=== PATIENT | male | born 1945 | race Caucasian/White ===

== ENCOUNTER → 2020-08-24 08:51 | Outpatient (CLI) | payer MEDICARE, OTHER, SELFPAY ==
[2020-08-24 19:43] LABS: Add Manual Diff / Slide Review NO; Basophils Absolute Auto 0 /uL (0-100); Basophils Percent Auto 0.8 % (0-2); Eosinophils Absolute Auto 200 /uL (0-450); Eosinophils Percent Auto 4.6 % (2-4); Hematocrit 37.9 % (41-53); Hemoglobin 12.9 g/dL (13.5-17.5); Lymphocytes Absolute Auto 1700 /uL (1100-4500); Lymphocytes Percent Auto 34.8 % (25-40); Mean Corpuscular Hemoglobin 32.6 PG (26-34); Mean Corpuscular Volume 95.8 fL (80-100); Monocytes Absolute Auto 600 /uL (0-900); Monocytes Percent Auto 11.8 % (3-14); Neutrophils Absolute Auto 2400 /uL (1500-7000); Platelet Count 146 X10^3/uL (150-400); Red Blood Cell Count 3.96 X10^6/uL (4.5-5.9); Red Cell Distribution Width 13.3 % (11.6-14.8)
[2020-08-24 19:48] LABS: C-Reactive Protein Quant < 0.5 mg/dL (<1.0)
[2020-08-24 19:49] LABS: Alanine Aminotransferase 15 IU/L (<50); Albumin 3.7 g/dL (3.5-5.0); Albumin Globulin Ratio 1.4 (1.0-2.8); Alkaline Phosphatase 49 U/L (38-126); Aspartate Aminotransferase 27 IU/L (17-59); BUN Creatinine Ratio 21.6 (6-22); Bilirubin Total 0.5 mg/dL (0.2-1.3); Blood Urea Nitrogen 16 mg/dL (9-20); Calcium 9.3 mg/dL (8.4-10.2); Carbon Dioxide 29 mmol/L (22-32); Chloride 108 mmol/L (98-107); Cholesterol 157 mg/dL (140-199); Estimated Glomerular Filt Rate > 60.0 mL/min (>60); Globulin 2.7 g/dL (1.7-4.1); Glucose 105 mg/dL (80-110); HDL Cholesterol 34 mg/dL (40-60); HEMOLYSIS < 15 (0-50); LDL Cholesterol Calculated 109 mg/dL (<100); Potassium 4.3 mmol/L (3.4-5.1); Sodium 139 mmol/L (137-145); Total Protein 6.4 g/dL (6.3-8.2); Triglycerides 72 mg/dL (35-150)
[2020-08-24 20:18] LABS: Prostate Specific Antigen Scrn 1.16 ng/mL (0.1-4.0)
== END ==
PROVIDERS: PCP Family Medicine; Referring Provider Physician Assistant; Visit Provider Physician Assistant
DX: E78.00 Pure hypercholesterolemia, unspecified (principal); K21.9 Gastro-esophageal reflux disease without esophagitis; Z12.5 Encounter for screening for malignant neoplasm of prostate; R35.1 Nocturia; M25.50 Pain in unspecified joint
CPT/HCPCS: 80053; 80061; 85025; 86140; G0103

== ENCOUNTER → 2020-08-31 11:47 | Outpatient (CLI) | payer MEDICARE, OTHER, SELFPAY ==
[2020-09-04 14:42] LABS: Fecal Immunochemical Test Negative (Negative)
== END ==
PROVIDERS: PCP Family Medicine; Referring Provider Physician Assistant; Visit Provider Physician Assistant
DX: K21.9 Gastro-esophageal reflux disease without esophagitis (principal)
CPT/HCPCS: 82274

== ENCOUNTER → 2020-09-12 12:12 | Outpatient (CLI) | payer MEDICARE, OTHER, SELFPAY ==
[2020-09-14 16:58] LABS: Fecal Immunochemical Test Negative (Negative)
== END ==
PROVIDERS: PCP Family Medicine; Visit Provider Physician Assistant
DX: D64.9 Anemia, unspecified (principal)
CPT/HCPCS: 82274; 87177

== ENCOUNTER → 2021-07-17 09:05 | Outpatient (CLI) | payer MEDICARE, OTHER, SELFPAY ==
[2021-07-17 18:47] LABS: Alanine Aminotransferase 15 IU/L (<50); Albumin 3.8 g/dL (3.5-5.0); Albumin Globulin Ratio 1.4 (1.0-2.8); Alkaline Phosphatase 46 U/L (38-126); Aspartate Aminotransferase 28 IU/L (17-59); BUN Creatinine Ratio 19.4 (6-22); Bilirubin Total 0.7 mg/dL (0.2-1.3); Blood Urea Nitrogen 19 mg/dL (9-20); Calcium 8.6 mg/dL (8.4-10.2); Carbon Dioxide 28 mmol/L (22-32); Chloride 105 mmol/L (98-107); Cholesterol 96 mg/dL (140-199); Estimated Glomerular Filt Rate > 60 mL/min (>60); Globulin 2.7 g/dL (1.7-4.1); Glucose 100 mg/dL (80-110); HDL Cholesterol 22 mg/dL (40-60); HEMOLYSIS < 15 (0-50); LDL Cholesterol Calculated 62 mg/dL (<100); Potassium 4.4 mmol/L (3.4-5.1); Sodium 139 mmol/L (137-145); Total Protein 6.5 g/dL (6.3-8.2); Triglycerides 58 mg/dL (35-150)
[2021-07-17 19:00] LABS: TSH w/ Reflex to FT4 1.83 uIU/mL (0.47-4.68)
[2021-07-17 19:14] LABS: Basophils Absolute Auto 0 /uL (0-100); Basophils Percent Auto 0.7 % (0-2); Eosinophils Absolute Auto 100 /uL (0-450); Eosinophils Percent Auto 2.3 % (2-4); Hematocrit 48.4 % (41-53); Hemoglobin 16.6 g/dL (13.5-17.5); Lymphocytes Absolute Auto 1600 /uL (1100-4500); Lymphocytes Percent Auto 25.1 % (25-40); Mean Corpuscular HGB Conc 34.4 % (30-36); Monocytes Absolute Auto 700 /uL (0-900); Monocytes Percent Auto 11.6 % (3-14); Neutrophils Absolute Auto 3800 /uL (1500-7000); Neutrophils Percent Auto 60.3 % (50-75); Platelet Count 139 X10^3/uL (150-400); Red Blood Cell Count 5.04 X10^6/uL (4.5-5.9); Red Cell Distribution Width 13.5 % (11.6-14.8); White Blood Cell Count 6.4 X10^3/uL (4.5-11.0)
[2021-07-17 19:16] LABS: Add Manual Diff / Slide Review SLIDE REVIEW; RBC Morphology Normal Morphology
== END ==
PROVIDERS: PCP Family Medicine; Visit Provider Family Medicine
DX: Z13.6 Encounter for screening for cardiovascular disorders (principal); D64.9 Anemia, unspecified; M25.50 Pain in unspecified joint; I95.9 Hypotension, unspecified; R00.1 Bradycardia, unspecified
CPT/HCPCS: 80053; 80061; 84443; 85025

== ENCOUNTER → 2021-09-12 13:47 | Outpatient (CLI) | payer MEDICARE, OTHER, SELFPAY ==
--- NOTE | 2021-09-12 | DI.ECHO.S_ITS ---
[facility] +---------+ : : [address] : [address] : : : : [id number] : : : : Phone: [phone]---------+ Echocardiogram Report + + :Name: PEYTON MCCRACKEN Study Date: 09/12/2021 Height: 72 in : :[facility] ReadingLocation: Weight: 180 lb : : Gender: Male BSA: 2.0 m2 : :: 1945 Age: 76 yrs BP: 113/81 mmHg: :Reason For Study: DYSPNEA : :Ordering Physician: JEWEL, : :KIRAN Performed By: Lori Nevarez : :Referring: KIRAN TOUSSAINT : + + Interpretation Summary 1) Normal left ventricular size and thickness with mildly to moderately reduced systolic function (EF 40-45%). 2) Normal right ventrcular size and function. 3) The left atrium is severely dilated. 4) There is moderate mitral regurgitation. 5) The right ventricular systolic pressure is estimated to be at least 31 mmHg based on an estimated right atrial pressure of 8 mm Hg. 6) Atrial fibrillation appears to be present during the study. 7) No prior Echo available for comparison. Procedure: A two-dimensional transthoracic echocardiogram with color flow and Doppler was performed. The study quality was technically good. There is no prior echocardiogram noted for this patient. The heart rate ranged between 77- 109 bpm during the study. Left Ventricle: The left ventricle is normal in size and wall thickness. The ejection fraction is estimated to be 40-45%. There is mild to moderate global hypokinesis of the left ventricle. Right Ventricle: The right ventricle is normal in size and function. Atria: The left atrium is severely dilated. The right atrium is mildly dilated. There is no Doppler evidence for an interatrial shunt. Mitral Valve: The mitral valve leaflets are slightly calcified. There is moderate mitral regurgitation. Aortic Valve: The aortic valve is trileaflet. The aortic valve opens well. The aortic valve is slightly calcified. There is no aortic valve stenosis. No aortic regurgitation is present. Tricuspid Valve: The tricuspid valve is normal in structure and function. There is mild tricuspid regurgitation. The right ventricular systolic pressure is estimated to be at least 31 mmHg based on an estimated right atrial pressure of 8 mm Hg. Pulmonic Valve: The pulmonic valve leaflets are thin and pliable; valve motion is normal. There is mild pulmonic regurgitation. Great Vessels: The aortic root is normal size. The dimensions of the ascending aorta are normal. The IVC is dilated (diameter is greater than 2.1 cm) yet it collapses greater than 50% with a sniff. This suggests a right atrial pressure of 8 mm Hg. Pericardium/ Pleura There is no pericardial effusion. There is no pleural effusion. MMode/2D Measurements & Calculations LVIDd: 5.5 cm LVOT diam: 2.2 cm LVIDs: 4.0 cm Ao root diam: 3.3 cm FS: 26.8 % asc Aorta Diam: 3.3 cm EPSS: 1.3 cm Ao Arch Diam (Prox Trans): 3.3 cm IVSd: 0.95 cm LVPWd: 0.86 cm LV black. diameter/BSA (cm/m^2): 2.7 LV sys. diameter/BSA (cm/m^2): 2.0 LA A2 area: 31.5 cm2 RA long axis: 5.6 cm LA A4 area: 30.1 cm2 RA area: 22.4 cm2 LA length (vol): 6.4 cm RA vol: 76.7 ml LA vol: 125.1 ml RA : 37.7 ml/m2 LA vol index: 61.4 ml/m2 IVC diam: 2.2 cm RVD1 (basal): 3.3 cm RVD2 (mid): 2.2 cm TAPSE: 1.8 cm Doppler Measurements & Calculations Ao V2 max: 128.7 cm/sec LVOT Max Paulino: 82.3 cm/sec Ao V2 mean: 92.9 cm/sec LV V1 max P.7 mmHg Ao max P.7 mmHg LV V1 VTI: 13.0 cm Ao mean P.9 mmHg ANDRE(I,D): 2.2 cm2 Ao V2 VTI: 21.9 cm ANDRE(V,D): 2.4 cm2 sev ratio: 0.60 ANDRE indexed to BSA (cm^2/m^2): 1.1 MV E max paulino: 75.1 cm/sec TR max paulino: 241.2 cm/sec MV A max paulino: 0.81 cm/sec TR max P.3 mmHg MV E/A: 92.3 PA V2 max: 85.0 cm/sec Med Peak E' Paulino: 8.7 cm/sec PA V2 mean: 54.3 cm/sec E/E' med: 8.6 PA mean P.3 mmHg Lat Peak E' Paulino: 10.3 cm/sec PA Accel Time: 0.07 sec E/E' lat: 7.3 E/e' average: 8.0 MV dec time: 0.23 sec MR ERO: 0.23 cm2 MR PISA: 3.1 cm2 SV(LVOT): 48.5 ml MR flow rate: 112.3 cm3/sec MR PISA radius: 0.70 cm Reading Physician:12:25 PM
[2021-09-12 15:01] LABS: COVID19 -Nasal RAPID Negative (Negative)
--- NOTE | 2021-09-12 18:28 | DI.NM.S_ITS ---
DATE OF SERVICE: 09/12/2021 PROCEDURE PERFORMED: Exercise stress test. INDICATION: Shortness of breath. CARDIAC STRESS: The patient underwent exercise stress test under the supervision of an attending staff using standard protocol. He walked on Edgar protocol for 9 minutes and 39 seconds and achieved maximum heart rate 184, which was 128 percent of target heart rate. Baseline blood pressure 142/84. Peak blood pressure 170/102 mmHg, suggestive of hypertensive blood pressure response. Baseline rhythm, atrial fibrillation with mostly controlled ventricular rate. During stress, no convincing ischemic changes seen. The patient remained in AFib. No ventricular tachycardia. The patient achieved 10.1 METs of workload. ALIZE -52 percent. No chest pain. CONCLUSION: Exercise stress test is negative for inducible ischemia. Good exercise tolerance. ALIZE -52 percent. Hypertensive blood pressure response. Peak blood pressure 170/102 mmHg. Underlying rhythm atrial fibrillation with mostly controlled ventricular rate. During stress, the patient remained in atrial fibrillation without any convincing ischemic changes. Maximum heart rate 184 beats per minute. As far as exercise stress test is concerned, overall low-risk exercise stress test. Chente Lorenzo - LAMINE/markel/josiah doc#: [id number]/job#: [id number] dd: 09/12/2021 17:26:00 dt: 09/12/2021 18:15:00 DICTATING /COPIES TO: Valerio Whaley MD; Jessica Toussaint MD COPIES MNE: MARSHALL;
== END ==
PROVIDERS: PCP Family Medicine; Referring Provider Internal Medicine Cardiovascular Disease; Visit Provider Internal Medicine Cardiovascular Disease
DX: I08.1 Rheumatic disorders of both mitral and tricuspid valves (principal); R06.00 Dyspnea, unspecified; Z20.822 Contact with and (suspected) exposure to COVID-19
CPT/HCPCS: 87635; 93017; 93306

== ENCOUNTER → 2023-10-22 13:00 | Outpatient (CLI) | payer MEDICARE, OTHER, SELFPAY | PROVIDERS: PCP Physician Assistant; Visit Provider Physician Assistant | DX: Z13.6 Encounter for screening for cardiovascular disorders (principal); Z12.5 Encounter for screening for malignant neoplasm of prostate; D64.9 Anemia, unspecified; G50.0 Trigeminal neuralgia; I95.9 Hypotension, unspecified; Z12.11 Encounter for screening for malignant neoplasm of colon; Z11.59 Encounter for screening for other viral diseases | CPT/HCPCS: 82274 ==

== ENCOUNTER → 2023-10-23 09:05 | Outpatient (CLI) | payer MEDICARE, OTHER, SELFPAY ==
[2023-10-23 19:19] LABS: Add Manual Diff / Slide Review NO; Basophils Absolute Auto 100 /uL (0-100); Basophils Percent Auto 1.2 % (0-2); Eosinophils Absolute Auto 300 /uL (0-450); Eosinophils Percent Auto 6.1 % (2-4); Hematocrit 40.3 % (41-53); Hemoglobin 13.8 g/dL (13.5-17.5); Lymphocytes Absolute Auto 2200 /uL (1100-4500); Lymphocytes Percent Auto 41.4 % (25-40); Mean Corpuscular HGB Conc 34.1 % (30-36); Mean Corpuscular Hemoglobin 33.5 PG (26-34); Mean Corpuscular Volume 98.1 fL (80-100); Monocytes Absolute Auto 700 /uL (0-900); Monocytes Percent Auto 12.5 % (3-14); Neutrophils Absolute Auto 2100 /uL (1500-7000); Neutrophils Percent Auto 38.8 % (50-75); Platelet Count 157 X10^3/uL (150-400); Red Blood Cell Count 4.11 X10^6/uL (4.5-5.9); Red Cell Distribution Width 13.7 % (11.6-14.8); White Blood Cell Count 5.4 X10^3/uL (4.5-11.0)
[2023-10-23 19:24] LABS: HEMOLYSIS < 15 (0-50); Iron 135 ug/dL (49-181)
[2023-10-23 19:30] LABS: Alanine Aminotransferase 15 IU/L (<50); Albumin 4.2 g/dL (3.5-5.0); Albumin Globulin Ratio 1.5 (1.0-2.8); Alkaline Phosphatase 57 U/L (38-126); Aspartate Aminotransferase 57 IU/L (17-59); BUN Creatinine Ratio 22.9 (6-22); Blood Urea Nitrogen 24 mg/dL (9-20); C-Reactive Protein Quant < 0.5 mg/dL (<1.0); Calcium 9.5 mg/dL (8.4-10.2); Carbon Dioxide 26 mmol/L (22-32); Chloride 107 mmol/L (98-107); Estimated Glomerular Filt Rate > 60 mL/min (>60); Globulin 2.8 g/dL (1.7-4.1); Glucose 102 mg/dL (80-110); HEMOLYSIS < 15 (0-50); Potassium 4.4 mmol/L (3.4-5.1); Sodium 138 mmol/L (137-145)
[2023-10-23 20:20] LABS: Hep C Virus Ab w/Reflex Quant NEGATIVE s/c (NEGATIVE)
[2023-10-23 21:01] LABS: Percent Iron Saturation 46 % (20-50); Total Iron Binding Capacity 295 ug/dL (261-462); Transferrin 227 mg/dL (206-381)
[2023-10-23 21:07] LABS: Prostate Specific Antigen Scrn 0.607 ng/mL (0.1-4.0)
[2023-10-23 21:11] LABS: Ferritin 207 ng/mL (18-464)
== END ==
PROVIDERS: PCP Physician Assistant; Visit Provider Physician Assistant
DX: Z12.5 Encounter for screening for malignant neoplasm of prostate (principal); Z13.6 Encounter for screening for cardiovascular disorders; D64.9 Anemia, unspecified; G50.0 Trigeminal neuralgia; I95.9 Hypotension, unspecified; Z12.11 Encounter for screening for malignant neoplasm of colon; Z11.59 Encounter for screening for other viral diseases
CPT/HCPCS: 80053; 82728; 83540; 83550; 85025; 86140; 86803; G0103

== ENCOUNTER → 2024-02-12 12:29 | Outpatient (CLI) | payer MEDICARE, OTHER, SELFPAY ==
[2024-02-12 20:39] LABS: COVID-19 CEPHEID 4-PLEX PCR Negative (Negative); Influenza A - CEPHEID Flu A NEGATIVE (NEGATIVE); Influenza B - CEPHEID Flu B NEGATIVE (NEGATIVE); Respiratory Syncytial Virus Negative (Negative)
== END ==
PROVIDERS: PCP Physician Assistant; Visit Provider Physician Assistant Medical
DX: J06.9 Acute upper respiratory infection, unspecified (principal)
CPT/HCPCS: 0241U